=== PATIENT | male | born 1955 | race Caucasian/White ===

== ENCOUNTER 2019-03-24 05:49 | Inpatient (IN) | payer MEDICAID ==
[~2019-03-24] VITALS: Ht 177.8 cm; Wt 84.4 kg
[2019-03-24 05:49] VITALS: BP_SYST 210
[2019-03-24] MEDS ORDERED: LABETALOL 100 MG/ 20ML VIAL IVP ONE (06:15)
[2019-03-24] MEDS ORDERED: NACL 0.9% 1,000 ML IV ONE (06:15)
[2019-03-24 06:45] LABS: BASOPHILS # (AUTO) 0.1 K/uL (0.0-0.2); BASOPHILS % (AUTO) 0.9 % (0.0-2.0); EOSINOPHILS # (AUTO) 0.1 K/uL (0.0-0.4); EOSINOPHILS % (AUTO) 1.2 % (0.0-4.0); HEMATOCRIT 42.7 % (36-54); HEMOGLOBIN 14.3 g/dL (14.0-18.0); LYMPHOCYTES # (AUTO) 3.8 K/uL (1.0-5.5); LYMPHOCYTES % (AUTO) 38.8 % (20.5-51.5); MEAN CORPUSCULAR HEMOGLOBIN 31 pg (27-31); MEAN CORPUSCULAR HGB CONC 34 % (32-36); MEAN CORPUSCULAR VOLUME 93 fL (79.0-98.0); MONOCYTES # (AUTO) 0.9 K/uL (0.0-1.0); MONOCYTES % (AUTO) 9.3 % (1.7-9.3); NEUTROPHILS # (AUTO) 4.9 K/uL (1.8-7.7); NEUTROPHILS % (AUTO) 49.8 % (40.0-70.0); PLATELET COUNT (AUTO) 327 K/uL (130-430); RED CELL DISTRIBUTION WIDTH 15.3 % (9.0-15.0); WHITE BLOOD COUNT (AUTO) 9.8 K/uL (4.8-10.8)
[2019-03-24 06:48] LABS: CALCIUM 10.2 mg/dL (8.4-11.0); CREATININE 1.2 mg/dL (0.55-1.30); POTASSIUM 3.5 mmol/L (3.5-5.1)
[2019-03-24 06:54] LABS: ALBUMIN 3.8 g/dL (3.4-4.8); TOTAL BILIRUBIN 0.2 mg/dL (0.0-1.0)
[2019-03-24] MEDS ORDERED: ASPIRIN 325 MG TABLET PO ONE (07:00)
[2019-03-24] MEDS ORDERED: NITROGLYCERIN 1 INCH (GM) OINT. TP ONE (07:00)
[2019-03-24] MEDS ORDERED: LORazepam 2 MG/ML VIAL IVP ONE (07:00)
[2019-03-24] MEDS ORDERED: CORCR10 PO (07:46)
[2019-03-24] MEDS ORDERED: LOSA100T3 PO (07:46)
[2019-03-24] MEDS ORDERED: APIX2.5T PO (07:46)
[2019-03-24 08:25] VITALS: BP_SYST 150
[2019-03-24] MEDS ORDERED: CARVEDILOL 3.125 MG TABLET (COREG) PO ONE (09:30)
[2019-03-24] MEDS ORDERED: LOSARTAN POTASSIUM 50 MG TABLET (COZAAR) PO ONE (09:30)
[2019-03-24 09:50] VITALS: BP_SYST 150
[2019-03-24] MEDS ORDERED: APIXABAN 2.5 MG TABLET PO ONE (10:00)
[2019-03-24] MEDS ORDERED: ATORVASTATIN 20 MG TABLET PO ONE (10:45)
[2019-03-24] MEDS ORDERED: CLOPIDOGREL BISULFATE 75 MG TABLET PO ONE (10:45)
[2019-03-24] MEDS ORDERED: ACETAMINOPHEN 500 MG TABLET PO PRN (11:00)
[2019-03-24] MEDS ORDERED: HYDROcodone/ACETAMIN 5-325 MG TAB (NORCO/ VICODIN) PO PRN (13:00)
[2019-03-24 15:24] VITALS: BP_SYST 134
[2019-03-24 15:24] LABS: BARBITURATE, URINE NEGATIVE (NEG <=200); BENZODIAZEPINE, URINE NEGATIVE (NEG <=150); CANNABINOID, URINE NEGATIVE (NEG <=50); COCAINE, URINE POSITIVE (NEG <=150); METHAMPHETAMINES SCREEN,URINE NEGATIVE (NEG <=500); OPIATE, URINE NEGATIVE (NEG <=100); PHENCYCLIDINE SCREEN,URINE NEGATIVE (NEG <=25); UR TRICYCLIC ANTIDEPRESSANTS NEGATIVE (NEG <=300); URINE AMPHETAMINE NEGATIVE (NEG <=500); URINE METHADONE NEGATIVE (NEG <=200); URINE OXYCODONE SCREEN NEGATIVE (NEG <=100); URINE PROPOXYPHENE SCREEN NEGATIVE (NEG <=300)
[2019-03-24] MEDS ORDERED: CARVEDILOL 3.125 MG TABLET (COREG) PO SCH (21:00)
[2019-03-24] MEDS ORDERED: APIXABAN 2.5 MG TABLET PO SCH (21:00)
[2019-03-25] MEDS ORDERED: ATORVASTATIN 20 MG TABLET PO SCH (09:00)
[2019-03-25] MEDS ORDERED: CLOPIDOGREL BISULFATE 75 MG TABLET PO SCH (09:00)
[2019-03-25] MEDS ORDERED: LOSARTAN POTASSIUM 50 MG TABLET (COZAAR) PO SCH (09:00)
== END 2019-03-24 15:25 | disposition left against medical advice (07) | DRG 203 ==
LOC: SED 05:49 → STU 07:23
PROVIDERS: ADMIT Internal Medicine Hospice and Palliative Medicine; ATTEND Internal Medicine Hospice and Palliative Medicine
DX: R07.89 Other chest pain (principal); I70.1 Atherosclerosis of renal artery; K40.90 Unilateral inguinal hernia, without obstruction or gangrene, not specified as recurrent; F41.1 Generalized anxiety disorder; I10 Essential (primary) hypertension; F98.8 Other specified behavioral and emotional disorders with onset usually occurring in childhood and adolescence; Z79.01 Long term (current) use of anticoagulants; Z79.02 Long term (current) use of antithrombotics/antiplatelets; Z79.899 Other long term (current) drug therapy; Z87.891 Personal history of nicotine dependence
CPT/HCPCS: 36415; 71045; 80053; 80307; 82550-TC; 83880; 84484; 85025; 85379; 93005; 93306; 96361; 96374; 96375; 99285; G0378; J2060; J3490; J7030